=== PATIENT | female | born 2005 | race Caucasian/White ===

== ENCOUNTER 2024-05-22 16:31 | Emergency (ER) | payer OTHER, SELFPAY ==
--- NOTE | 2024-05-22 16:33 | ED.URI ---
HPI - URI/Sore Throat General Chief Complaint: Upper Respiratory Infection Stated Complaint: SORE THROAT Source: patient and RN notes reviewed Mode of arrival: ambulatory Limitations: no limitations History of Present Illness HPI Narrative: Patient is a 19-year-old female who presents to the [facility] with complaints of sore throat beginning on Tuesday night. She states that the sore throat continues to worsen. She denies associated headache or fever. Denies sweats or chills. Denies recent cough or nasal congestion. Unsure of any known sick contacts. Related Data Home Medications Medication Instructions Recorded Confirmed sertraline 50 mg tablet 50 mg PO DAILY 05/22/24 05/22/24 Allergies Allergy/AdvReac Type Severity Reaction Status Date / Time No Known Allergies Allergy Unknown Unverified 05/22/24 16:42 Review of Systems Review of Systems: CONSTITUTIONAL: Denies fever, chills, or sweats. EYES: Denies visual changes, redness, or discharge. ENT: Denies otalgia. Reports sore throat. CARDIOVASCULAR: Denies chest pain, palpitations, or edema. RESPIRATORY: Denies cough or dyspnea. GASTROINTESTINAL: Denies abdominal pain, nausea, vomiting, or diarrhea. GENITOURINARY: Denies dysuria or hematuria. SKIN: Denies rash or itching. MUSCULOSKELETAL: Denies back pain, joint pain, or myalgia. NEUROLOGIC: Denies headache, numbness, or weakness. Pertinent positives per HPI. PMFSH Comments At the time of my signature, I reviewed and agree with the nursing past medical, surgical, social, and family history. There is no relevant family history pertinent to the patient complaint. Exam Narrative: GENERAL: This is a well-nourished, well-developed patient, in no apparent distress. HEAD: normocephalic, atraumatic. EYES: Sclera clear/white. Vision is grossly intact. EARS: External ears normal. Hearing grossly intact. NOSE: External nose normal with no obvious nasal discharge, nares without redness, no rhinorrhea. THROAT: Mucous membranes moist. Oropharyngeal erythema without exudate or ulceration. NECK: Neck supple, non-tender without lymphadenopathy, masses or thyromegaly. CARDIOVASCULAR: Regular rate and rhythm without murmurs, gallops, or rubs. RESPIRATORY: Clear to auscultation. Breath sounds equal bilaterally. No wheezes, rales, or rhonchi. GASTROINTESTINAL: Abdomen soft, non-tender, nondistended. Bowel sounds are active. No hepato-splenomegaly, or palpable masses. No guarding. SKIN: warm, intact with no suspicious lesions or rash, good texture and turgor. NEURO: awake, alert, and oriented to person, place and time. There were no obvious focal neurologic abnormalities. Course Course Level of Care: Express Care Visit Vital Signs Vital signs: Vital Signs Temperature 98.4 F 05/22/24 16:43 Pulse Rate 88 05/22/24 16:43 Respiratory Rate 16 05/22/24 16:43 Blood Pressure 105/56 L 05/22/24 16:43 Pulse Oximetry 100 05/22/24 16:43 Temperature 98.4 F 05/22/24 16:43 Pulse Rate 88 05/22/24 16:43 Respiratory Rate 16 05/22/24 16:43 Blood Pressure 105/56 L 05/22/24 16:43 Pulse Oximetry 100 05/22/24 16:43 Reviewed MDM - URI/Sore Throat MDM Narrative Medical decision making narrative: Rapid strep is negative in the office; however we will send to the lab for confirmation; there is a small percentage chance that it can come back positive; if it is, we will call you in 2-3days; and your prescription will be call in to your pharmacy. However, there is NO indication for antibiotic at this time. -Increase your fluids and Vitamin C. -Oral rinses such as: Salt water gargles and/or may use topical anesthetic (eg. Chloraseptic spray) or lozenges to relieve dryness or throat pain. -Take tylenol and ibuprofen as needed for pain and fever as directed. -Frequent hand washing or hand security attendant is one of the best ways to prevent spread of infection. -Follow up with primary care provider in 2-3 days if con
[2024-05-22 16:43] VITALS: BP 105/56; PULSE 88; RESP 16; TEMP 36.9; O2SAT 100
[2024-05-22 17:06] LABS: EDSTREPNEGPOS1 Negative
== END 2024-05-22 17:04 | disposition home or self-care (01) ==
PROVIDERS: Emergency Provider Nurse Practitioner; PCP Family Medicine
DX: J02.8 Acute pharyngitis due to other specified organisms (principal)
CPT/HCPCS: 87081; 87880; 99203; G0463

== ENCOUNTER 2024-12-27 19:27 | Emergency (ER) | payer OTHER, SELFPAY ==
--- OUTSIDE RECORDS SUMMARY | 2024-12-27 19:29 | XMS_ITS | Clinical Summary ---
Author Organization [facility] Address [facility] [place] [address] Care Team Providers Care Wick Tender Name Role Phone Felisha Clemens MD Primary Care Provider + Allergies No known active allergies Medications Loratadine 10 MG Cap Take by mouth daily. 01/19/2016 Active sertraline (ZOLOFT) 50 MG tablet Take 1.5 tablets (75 mg total) by mouth daily. 06/20/2023 Active Active Problems No known active problems Social History Tobacco Use Types Packs/Day Years Used Date Smoking Tobacco: Never Smokeless Tobacco: Never Alcohol Use Standard Drinks/Week Comments No 0 (1 standard drink = 0.6 oz pur e alcohol) AUDIT-C Answer Date Recorded Frequency of Alcohol Consumption Never 07/20/2019 Average Number of Drinks Not on file 019 Frequency of Binge Drinking Not on file 07/03 Comments No Sex and Gender Information Value Date Recorded Sex Assigned at Not on file Legal Sex Female 11:11 PM CDT Gender Identity Not on file Sexual Orientation Not on file Last Filed Vital Signs Vital Sign Reading Time Taken Comments Blood Pressure 105/69 06/26/2023 6:20 PM CDT Pulse 86 06/26/2023 6:20 PM CDT Temperature 36.7 C (98.1 F) 06/26/2023 6:20 PM CDT Respiratory Rate 20 06/26/2023 6:20 PM CDT Oxygen Saturation 97% 06/26/2023 6:20 PM CDT Inhaled Oxygen Concentration - - Weight 48.5 kg (107 lb) 06/26/2023 6:20 PM CDT Height 165.1 cm (5' 5 ) 06/26/2023 6:20 PM CDT Body Mass Index 17.81 06/26/2023 6:20 PM CDT Plan of Treatment Health Maintenance Due Date Last Done Comments Cervical Cancer Screening Pap Smear (Age 21 to 29) Every 3 Years 2003 Cervical Cancer Screening 2003 Annual Physical 2006 HPV Vaccines (1 - 3-dose series) 2018 Meningococcal B Vaccine (1 of 2 - Standard) 2019 Hepatitis C 2021 Hepatitis B Vaccines (1 of 3 - 19+ 3-dose series) 2022 DTaP, Tdap and Td Vaccines (2 - Td or Tdap) 04/29/2024 04/29/2014 COVID-19 Vaccine ( season) 2024 07/15/2022, 09/17/2021, 01/28/2021, Additional history exists Influenza Adult (#1) 2024 07/05/2014 Meningococcal Vaccine Aged Out 04/29/2014 No davion jesus eligible based on patient's age to complete this topic Pneumococcal Vaccine: Pediatrics (0 to 5 Years) and At-Risk Patients (6 to 64 Years) Aged Out No longer eligible based on patient's age to complete this topic RSV Immunizations Under 20 Months Aged Out No longer eligible based on patient's age to complete this topic Insurance [facility] Care Teams Wick Tender Relationship Specialty Start Date End Date Felisha Clemens MD [address] [place] [id number] PCP - General FAMILY PRACTICE 07/20/19
[2024-12-27 19:37] VITALS: BP 117/60; PULSE 97; RESP 18; TEMP 37; O2SAT 99
[2024-12-27 19:48] LABS: EDSTREPNEGPOS1 Negative (Negative)
--- NOTE | 2024-12-27 19:50 | ED_ITS ---
HPI - URI/Sore Throat General Chief Complaint: Upper Respiratory Infection Stated Complaint: SORE THROAT Time Seen by Provider: 12/27/24 19:29 Source: patient, family and RN notes reviewed Mode of arrival: ambulatory Limitations: no limitations History of Present Illness HPI Narrative: 19-year-old female presents to the [facility] complaining of a sore throat. Her sore throat started today around noon. She reports having some rhinorrhea as well. She denies any cough, fever, chills, aches, difficulty breathing, chest pain, white patches on her throat, nausea, vomiting, diarrhea. she denies any sick contacts, however she does go to a [employer] attends class in person. Her vaccinations are up-to-date Related Data Home Medications ?Medication ?Instructions ?Recorded ?Confirmed ?Last Taken ?Type sertraline 50 mg tablet 50 mg PO DAILY 05/22/24 05/22/24 Unknown History Allergies Allergy/AdvReac Type Severity Reaction Status Date / Time No Known Allergies Allergy Unknown Unverified 12/27/24 19:35 Review of Systems Review of Systems: CONSTITUTIONAL: Denies fever, chills, or sweats. EYES: Denies visual changes, redness, or discharge. ENT: positive for rhinorrhea and sore throat. Negative for congestion and ot algia CARDIOVASCULAR: Denies chest pain, palpitations, or edema. RESPIRATORY: Denies cough or dyspnea. GASTROINTESTINAL: Denies abdominal pain, nausea, vomiting, or diarrhea. GENITOURINARY: Denies dysuria or hematuria. SKIN: Denies rash or itching. MUSCULOSKELETAL: Denies back pain, joint pain, or myalgia. NEUROLOGIC: Denies headache, numbness, or weakness. PSYCHIATRIC: Denies anxiety or depression. All other systems reviewed are negative, except as documented in HPI. PMFSH Comments At the time of my signature, I reviewed and agree with the nursing past medical, surgical, social, and family history. There is no relevant family history pertinent to the patient complaint. Exam Narrative: GENERAL: This is a well-nourished, well-developed patient, in no apparent distress. HEAD: normocephalic, atraumatic. EYES: Sclera clear/white. Vision is grossly intact. EARS: External ears normal, auditory canals clear and without drainage, TMs normal without perforation. Hearing grossly intact. NOSE: External nose normal, rhinorrhea is present. Nares is mildly injected. THROAT: Mucous membranes moist, posterior pharynx is mildly injected. Uvula is midline. NECK: Neck supple, non-tender without lymphadenopathy, masses or thyromegaly. CARDIOVASCULAR: Regular rate and rhythm without murmurs, gallops, or rubs. RESPIRATORY: Clear to auscultation. Breath sounds equal bilaterally. No wheezes, rales, or rhonchi. GASTROINTESTINAL: Abdomen soft, non-tender, nondistended. no guarding SKIN: warm, Dry, intact with no suspicious lesions or rash, good texture and turgor. NEURO: awake, alert, and oriented to person, place and time. There were no obvious focal neurologic abnormalities. EXTREMITIES: No joint tenderness, effusion, or edema noted. BACK: Nontender without deformity. Course Course Level of Care: Express Care Visit Vital Signs Vital signs: Vital Signs Temperature 98.6 F 12/27/24 19:37 Pulse Rate 97 12/27/24 19:37 Respiratory Rate 18 12/27/24 19:37 Blood Pressure 117/60 12/27/24 19:37 Pulse Oximetry 99 12/27/24 19:37 Oxygen Delivery Room Air 12/27/24 19:37 Temperature 98.6 F 12/27/24 19:37 Pulse Rate 97 12/27/24 19:37 Respiratory Rate 18 12/27/24 19:37 Blood Pressure 117/60 12/27/24 19:37 Pulse Oximetry 99 12/27/24 19:37 Oxygen Delivery Room Air 12/27/24 19:37 reviewed MDM - URI/Sore Throat MDM Narrative Medical decision making narrative: rapid strep test is negative.Throat Culture sent off. Symptoms are likely viral in nature, her symptoms started today at noon. Antibiotics are not indicated at this time. If the throat culture are positive, antibiotics will be prescribed for appropriate treatment and the patient will be contacted of her results. Anticipatory guidance given, ED precautions discussed. Differential Diagnosis Differential diagnosis: Likely upper respiratory infection, viral infection and other ( VIRAL PHARYNGITIS, STREP PHARYNGITIS) Lab Data Attestation: I reviewed the patient's lab results. Labs: Lab Results 12/27/24 Range/Units 19:46 POC Grp A Strep Screen Negative (Negative) Critical Care Time Critical Care Time Critical Care Time: No Discharge Plan Discharge Clinical Impression: Acute viral pharyngitis Patient Disposition: Home, Self-Care Condition: Stable Instructions: Antibiotic Form, Pharyngitis (ED) Additional Instructions: Rapid strep is negative in the office; however we will send to the lab for confirmation; there is a small percentage chance that it can come back positive; if it is, we will call you in 2-3days; and your prescription will be call in to your pharmacy. However, there is NO indication for antibiotic at this time. -Oral rinses such as: Salt water gargles and/or may use topical anesthetic (eg. Chloraseptic spray) or lozenges to relieve dryness or throat pain. -Take tylenol and ibuprofen as needed for pain and fever as directed. - you may use Flonase nasal spray for congestion -Frequent hand washing or hand ventilator specialist is one of the best ways to prevent spread of infection. -Your symptoms are likely due to a viral illness, virus symptoms can last for up to 7-10days. Rest and stay hydrated. ?Follow up with your PCP in In 10 days if symptoms are not improving. ?Go to the ER immediately if you develop shortness of breath, difficulty swallowing, or any other concerning symptoms. Patient Language: Arabic Prescriptions: No Action sertraline 50 mg tablet 50 mg PO DAILY Follow-up/Referrals: Tania,Felisha Olvera MD [Primary Care Provider] - Time of Disposition: 19:53
== END 2024-12-27 19:56 | disposition home or self-care (01) ==
PROVIDERS: Emergency Provider Nurse Practitioner Family; PCP Family Medicine
DX: J02.8 Acute pharyngitis due to other specified organisms (principal)
CPT/HCPCS: 87081; 87880; 99213; G0463

== ENCOUNTER 2025-03-24 18:13 | Emergency (ER) | payer OTHER, SELFPAY ==
--- NOTE | 2025-03-24 18:13 | ED.SKABFB ---
HPI - Skin/Abscess/Foreign Bdy General Chief complaint: Skin/Abscess/Foreign Body Stated complaint: spider bite Time Seen by Provider: 03/24/25 18:21 Source: patient, RN notes reviewed and old records reviewed Mode of arrival: ambulatory Limitations: no limitations History of Present Illness HPI narrative: 20-year-old female presents to the [facility] with concerns of an insect bite to the bottom mid left. States it occurred 4-5 days ago. Describes it as being itchy. Small vesicular area. No erythema.. Onset (ago): day(s) (4-5) Related Data Home Medications ?Medication ?Instructions ?Recorded ?Confirmed ?Last Taken ?Type sertraline 50 mg tablet 50 mg PO DAILY 05/22/24 05/22/24 Unknown History Allergies Allergy/AdvReac Type Severity Reaction Status Date / Time No Known Allergies Allergy Unknown Verified 03/24/25 18:21 Review of Systems Review of Systems: All systems reviewed & are unremarkable except as noted in HPI and below Constitutional: Constitutional: Reports no additional constitutional complaints Respiratory: Respiratory: Reports no additional respiratory complaints Musculoskeletal: Musculoskeletal: Reports no additional musculoskeletal complaints Integumentary/Breasts: Skin/Breast: Reports as per HPI PMFSH Comments At the time of my signature, I reviewed and agree with the nursing past medical, surgical, social, and family history. There is no relevant family history pertinent to the patient complaint. Exam Const: General: cooperative, healthy appearing, comfortable, no acute distress, well developed, alert and well nourished Nutritional Appearance: well nourished Orientation/consciousness: patient oriented x3 Limitations: no limitations HENMT: Head: normal to inspection Eyes: General: appearance normal, both eyes and all related structures Alignment and Position: alignment normal Neck: Neck: normal visual inspection, full ROM, no lymphadenopathy and no meningeal signs Chest: Chest palpation & inspection: normal inspection of the chest Resp: Effort & Inspection: normal respiratory effort and able to speak in complete sentences Cardio: Rate: regular rate Skin: General skin exam: normal color and no rashes or lesions noted Other: 0.5 x 0.5 cm center planter aspect left foot without erythema. Neuro: General: patient oriented x3, gait normal, moves all extremities and no meningeal signs Cognition (Neuro): normal cognition Speech: normal speech Gait exam (Neuro): Normal gait present Extrem: General: normal to inspection, full ROM, capillary refill normal and normal gait Psych: Appearance: grossly normal and well kempt Mental Status: mental status grossly normal Speech and movement: Normal speech and movement present and Clear speech present Affect: normal affect Attitude: cooperative Course Course Level of Care: Express Care Visit Vital Signs Vital signs: Vital Signs Temperature 98.3 F 03/24/25 18:20 Pulse Rate 76 03/24/25 18:20 Respiratory Rate 18 03/24/25 18:20 Blood Pressure 115/55 L 03/24/25 18:20 Pulse Oximetry 100 03/24/25 18:20 Oxygen Delivery Room Air 03/24/25 18:20 Temperature 98.3 F 03/24/25 18:20 Pulse Rate 76 03/24/25 18:20 Respiratory Rate 18 03/24/25 18:20 Blood Pressure 115/55 L 03/24/25 18:20 Pulse Oximetry 100 03/24/25 18:20 Oxygen Delivery Room Air 03/24/25 18:20 Reviewed MDM - Skin/Abscess/Foreign Bdy MDM Narrative Medical decision making narrative: Patient sitting in exam room. Patient is nontoxic, vitals are stable Patient concern she was bit by a spider, vascular area without necrotic or cellulitic changes Patient appropriate for outpatient treatment with close follow-up Discharge instructions reviewed with patient, as well as provided in writing per nursing staff. The instructions also include specific and strict return/GO TO THE ER as well as f/u information. All questions have been answered, and the patient deny any further questions with discharge and discharge plan. Some parts of this dictation were generated by voice recognition software and may contain typographical and/or grammatical inaccuracies. Differential Diagnosis Differential diagnosis: Likely abscess of skin or subcutaneous tissue, dermatophytosis, urticaria, cellulitis, insect bites, contact dermatitis and other (Plantar wart) Critical Care Time Critical Care Time Critical Care Time: No Discharge Plan Discharge Clinical Impression: Insect bites Patient Disposition: Home Condition: Stable Instructions: Antibiotic Form, Insect Bite or Sting (ED) Additional Instructions: For itching apply hydrocortisone cream and take Benadryl. Soak twice daily in warm soapy water and Epson salt Do not pop that blister. Signs of infection would be increased pain, redness Follow-up with primary care per Worsening symptoms please go to the ER Patient Language: Bulgarian Prescriptions: No Action sertraline 50 mg tablet 50 mg PO DAILY Follow-up/Referrals: UNKNOWN,DOCTOR [Non-Staff] - Time of Disposition: 18:29
[2025-03-24 18:20] VITALS: BP 115/55; PULSE 76; RESP 18; TEMP 36.8; O2SAT 100
== END 2025-03-24 18:31 | disposition home or self-care (01) ==
PROVIDERS: Emergency Provider Nurse Practitioner; PCP Family Medicine
DX: S90.862A Insect bite (nonvenomous), left foot, initial encounter (principal); W57.XXXA Bitten or stung by nonvenomous insect and other nonvenomous arthropods, initial encounter
CPT/HCPCS: 99211; G0463